=== PATIENT | male | born 1965 | race African-American/Black ===

== ENCOUNTER 2018-12-29 11:58 | Emergency (ER) | payer OTHER ==
[~2018-12-29] VITALS: Ht 167.6 cm; Wt 93.4 kg
[2018-12-29 12:05] VITALS: BP 150/95; TEMP 97.8
== END 2018-12-29 13:24 | disposition home or self-care (01) ==
LOC: ED 11:58
DX: S13.4XXA Sprain of ligaments of cervical spine, initial encounter (principal); S20.211A Contusion of right front wall of thorax, initial encounter; W19.XXXA Unspecified fall, initial encounter; Y92.096 Garden or yard of other non-institutional residence as the place of occurrence of the external cause
CPT/HCPCS: 96372; 99283; J1885

== ENCOUNTER 2021-12-31 10:10 | Emergency (ER) | payer OTHER ==
[~2021-12-31] VITALS: Ht 167.6 cm; Wt 93.4 kg
[2021-12-31 10:15] VITALS: TEMP 98.7
[2021-12-31] MEDS ORDERED: METFORMIN ER1000 MG PO (10:30)
[2021-12-31] MEDS ORDERED: PRAVASTATIN10 MG PO (10:31)
[2021-12-31] MEDS ORDERED: JARDIANCE25 MG PO (10:32)
[2021-12-31] MEDS ORDERED: SOLIQUA 100/331 INJ SC (10:32)
[2021-12-31] MEDS ORDERED: ALPR0.2566 PO (10:34)
[2021-12-31] MEDS ORDERED: DULOXETINE HCL40 MG PO (10:36)
[2021-12-31] MEDS ORDERED: FURO20TA67 PO (10:36)
[2021-12-31] MEDS ORDERED: MONTELUKAST SOD10 MG PO (10:37)
[2021-12-31] MEDS ORDERED: CLOPIDOGREL75 MG PO (10:38)
[2021-12-31] MEDS ORDERED: GABA400C2 PO (10:38)
[2021-12-31] MEDS ORDERED: ISOSORB DIN30 MG (10:39)
[2021-12-31] MEDS ORDERED: METOPROLOL TART75 MG PO (10:39)
[2021-12-31 10:50] LABS: POTASSIUM 3.9 mmol/L (3.6-5.2)
[2021-12-31 10:56] LABS: PLATELET COUNT 313 K/uL (142-355)
[2021-12-31 11:24] LABS: PARTIAL THROMBOPLASTIN TIME 28.3 SECONDS (24.5-33.6)
[2021-12-31 12:20] VITALS: BP 104/65
== END 2021-12-31 12:20 | disposition home or self-care (01) ==
LOC: ED 10:10
PROVIDERS: Family Medicine
DX: K59.09 Other constipation (principal); R11.2 Nausea with vomiting, unspecified; K74.69 Other cirrhosis of liver; R73.9 Hyperglycemia, unspecified; Z79.899 Other long term (current) drug therapy
CPT/HCPCS: 36415; 80053; 80307; 81002; 82150; 82550; 83690; 84484; 85027; 85610; 85730; 93005; 99283

== ENCOUNTER 2022-07-13 08:22 | Outpatient (CLI) | payer OTHER ==
[~2022-07-13 08:22] MED LIST: ALPR0.2566 PO; CLOPIDOGREL75 MG PO; DULOXETINE HCL40 MG PO; FURO20TA67 PO; GABA400C2 PO; ISOSORB DIN30 MG; JARDIANCE25 MG PO; METFORMIN ER1000 MG PO; METOPROLOL TART75 MG PO; MONTELUKAST SOD10 MG PO; PRAVASTATIN10 MG PO; SOLIQUA 100/331 INJ SC
== END 2022-07-13 18:55 | disposition home or self-care (01) ==
LOC: RAD 08:22
PROVIDERS: ATTEND Internal Medicine Sleep Medicine
DX: R06.09 Other forms of dyspnea (principal)

== ENCOUNTER 2022-07-26 08:11 | Outpatient (CLI) | payer OTHER | END 2022-07-26 19:42 | disposition home or self-care (01) | LOC: US 08:11 | PROVIDERS: ATTEND Internal Medicine Gastroenterology | DX: K70.30 Alcoholic cirrhosis of liver without ascites (principal) ==